=== PATIENT | male | born 1990 | race Caucasian/White ===

== ENCOUNTER 2017-04-27 12:43 | Emergency (ER) | payer SELFPAY ==
[2017-04-27] MEDS ORDERED: ZOFRAN ODT4 MG PO (15:54)
[2017-04-27] MEDS ORDERED: CIPROFLOXACN500 MG PO (15:54)
[2017-04-27] MEDS ORDERED: PERCOCET 5/325M1 TAB PO (15:54)
== END 2017-04-27 12:58 | disposition left against medical advice (07) | DRG 951 ==
LOC: ED 12:43 → LWOBS 12:56
DX: Z91.19 Patient's noncompliance with other medical treatment and regimen (principal)

== ENCOUNTER 2017-04-27 13:17 | Emergency (ER) | payer SELFPAY ==
[2017-04-27 13:50] LABS: HEMATOCRIT 40.8 % (39.0-50.0); HEMOGLOBIN 12.8 g/dl (14.0-18.0); IMMATURE GRANULOCYTES 0.3 % (0.0-1.0); MEAN CELL VOLUME 80.5 fL CALC (80.0-100.0); MEAN CORPUSCULAR HGB 25.2 pG CALC (26.0-32.0); MEAN CORPUSCULAR HGB CONC 31.4 g/L CALC (32.0-36.0); NEUT# 12.57 thou/uL (1.82-7.42); RED BLOOD COUNT 5.07 mill/uL (4.70-6.10); RED CELL DISTRI WIDTH 15.5 % (11.5-15.5)
[2017-04-27 14:03] LABS: ALBUMIN 4.4 g/dL (3.2-5.0); ALKALINE PHOSPHATASE 101 u/l (38-126); AMYLASE < 30 u/l (30-110); ANION GAP 15 (6-22 (CALC)); BILIRUBIN, TOTAL 0.9 mg/dL (0.0-1.4); BUN 16 mg/dL (9-20); BUN/CREATININE RATIO 12 (12-20 (CALC)); CALCIUM 9.7 mg/dL (8.4-10.2); CARBON DIOXIDE 27 mmol/l (22-30); CHLORIDE 106 mmol/l (95-108); CREATININE 1.4 mg/dL (0.7-1.3); GFR > 60 ML/MIN (>=60 (CALC)); GFR FOR AFR.AMER. > 60 ML/MIN (>=60 (CALC)); GLUCOSE 105 mg/dL (75-110); LIPASE 41 u/l (23-300); POTASSIUM 4.2 mmol/l (3.5-5.1); SGOT/AST 21 u/l (17-59); SGPT/ALT 44 u/l (21-72); SODIUM 144 mmol/l (137-146); TOTAL PROTEIN 7.1 g/dL (6.3-8.2)
[2017-04-27 15:38] LABS: URINE BILIRUBIN - DIPSTICK NEGATIVE (NEGATIVE); URINE BLOOD DIPSTICK MODERATE (NEGATIVE); URINE CLARITY CLEAR; URINE COLOR YELLOW; URINE GLUCOSE - DIPSTICK NEGATIVE (NEGATIVE); URINE KETONE TRACE mg/dL (NEGATIVE); URINE LEUK ESTERASE NEGATIVE (NEGATIVE); URINE NITRITE - DIPSTICK NEGATIVE (Negative); URINE PH 6.5 (4.5-8.0); URINE PROTEIN - DIPSTICK NEGATIVE (NEG-TRACE); URINE SPECIFIC GRAVITY 1.025; URINE UROBILINOGEN - DIPSTICK 0.2 E.U./dL (0.2)
[2017-04-27] MEDS ORDERED: PERCOCET 5/325M1 TAB PO (15:54)
[2017-04-27] MEDS ORDERED: ZOFRAN ODT4 MG PO (15:54)
[2017-04-27] MEDS ORDERED: CIPROFLOXACN500 MG PO (15:54)
[2017-04-27 16:05] VITALS: BP 132/70
== END 2017-04-27 16:06 | disposition home or self-care (01) | DRG 694 ==
LOC: ED 13:17
PROVIDERS: Emergency Medicine
DX: N13.2 Hydronephrosis with renal and ureteral calculous obstruction (principal); R11.2 Nausea with vomiting, unspecified; R10.32 Left lower quadrant pain; R10.9 Unspecified abdominal pain

== ENCOUNTER 2018-04-02 15:45 | Emergency (ER) | payer SELFPAY ==
[~2018-04-02] VITALS: Ht 177.8 cm; Wt 154.5 kg
[~2018-04-02 15:45] MED LIST: CIPROFLOXACN500 MG PO; PERCOCET 5/325M1 TAB PO; ZOFRAN ODT4 MG PO
[2018-04-02 16:55] LABS: URINE BILIRUBIN - DIPSTICK NEGATIVE (NEGATIVE); URINE BLOOD DIPSTICK NEGATIVE (NEGATIVE); URINE COLOR YELLOW; URINE GLUCOSE - DIPSTICK NEGATIVE (NEGATIVE); URINE KETONE NEGATIVE (NEGATIVE); URINE LEUK ESTERASE NEGATIVE (NEGATIVE); URINE NITRITE - DIPSTICK NEGATIVE (Negative); URINE PH 6.5 (4.5-8.0); URINE PROTEIN - DIPSTICK NEGATIVE (NEG-TRACE); URINE SPECIFIC GRAVITY >=1.030; URINE UROBILINOGEN - DIPSTICK 0.2 E.U./dL (0.2)
[2018-04-02 16:56] LABS: URINE CLARITY CLEAR
[2018-04-02 16:58] LABS: BARBITURATES NEGATIVE (NEGATIVE); COCAINE NEGATIVE (NEGATIVE); METHADONE NEGATIVE (NEGATIVE); OXCYCODONE NEGATIVE (NEGATIVE); TETRAHYDROCANNABIONOL POSITIVE (NEGATIVE); TRICYLIC ANTIDEPRESSANTS NEGATIVE (NEGATIVE)
[2018-04-02 17:11] VITALS: BP 159/91
[2018-04-02] MEDS ORDERED: NAPROSYN500 MG PO (17:13)
[2018-04-02] MEDS ORDERED: FLEXERIL PO (17:13)
== END 2018-04-02 17:30 | disposition home or self-care (01) | DRG 552 ==
LOC: ED 15:45
PROVIDERS: Emergency Medicine
DX: M51.9 Unspecified thoracic, thoracolumbar and lumbosacral intervertebral disc disorder (principal); F17.210 Nicotine dependence, cigarettes, uncomplicated

== ENCOUNTER 2018-07-05 07:15 | Day surgery (SDC) | payer OTHER ==
[~2018-07-05] VITALS: Ht 177.8 cm; Wt 156.9 kg
[~2018-07-05 07:15] MED LIST changes: +ALEVE220 M1 PO; +FLEXERIL PO; +GABAPENTIN400 M2 PO; +NAPROSYN500 MG PO; +TRAMADOL HCL50 MG PO
[2018-07-05 11:25] VITALS: BP 140/91
== END 2018-07-05 09:45 | disposition home or self-care (01) ==
LOC: ORM 07:15
PROVIDERS: ATTEND Anesthesiology Pain Medicine
DX: M46.1 Sacroiliitis, not elsewhere classified (principal); M54.5 Low back pain

== ENCOUNTER 2018-07-19 06:34 | Day surgery (SDC) | payer OTHER ==
[~2018-07-19] VITALS: Ht 177.8 cm; Wt 156.9 kg
[2018-07-19 09:22] VITALS: BP 112/61
== END 2018-07-19 09:48 | disposition home or self-care (01) ==
LOC: ORM 06:34
PROVIDERS: ATTEND Anesthesiology Pain Medicine
DX: M46.1 Sacroiliitis, not elsewhere classified (principal)

== ENCOUNTER 2022-12-01 08:47 | Emergency (ER) | payer SELFPAY ==
[~2022-12-01] VITALS: Ht 177.8 cm; Wt 133.6 kg
[2022-12-01 11:04] VITALS: BP 150/87
== END 2022-12-01 11:00 | disposition left against medical advice (07) | DRG 313 ==
LOC: ED 08:47 → LWOBS 10:54 → ED 10:54
DX: R07.9 Chest pain, unspecified (principal); F41.9 Anxiety disorder, unspecified